=== PATIENT | female | born 1965 | race Two or more races ===

== ENCOUNTER 2021-11-04 14:43 | Emergency (ER) | payer MEDICAID ==
[~2021-11-04] VITALS: Ht 160 cm; Wt 46.7 kg
[2021-11-04 15:25] VITALS: BP 133/76
[2021-11-04] MEDS ORDERED: HYDROCODONE/APAP 5/325MG TABLET PO ONE (17:30)
[2021-11-04] MEDS ORDERED: MORPHINE SULFATE INJ 2 MG/ML DISP.SYRIN IM ONE (17:30)
[2021-11-04] MEDS ORDERED: MORPHINE SULFATE INJ 4 MG/ML DISP.SYRIN ONE (17:45)
[2021-11-04] MEDS ORDERED: CEPHALEXIN MONOHYDRATE 500 MG CAPSULE PO ONE ×2 (19:00→19:03)
[2021-11-04] MEDS ORDERED: TRAM50TA2 PO (19:33)
[2021-11-04] MEDS ORDERED: CEPH500C2 PO (19:33)
== END 2021-11-04 20:58 | disposition home or self-care (01) ==
LOC: ER 15:26
DX: S41.111A Laceration without foreign body of right upper arm, initial encounter (principal); W25.XXXA Contact with sharp glass, initial encounter; Y93.89 Activity, other specified; Y92.89 Other specified places as the place of occurrence of the external cause; Y99.8 Other external cause status
CPT/HCPCS: 12005; 73060; 96372; 99283; A6403; J2270

== ENCOUNTER 2021-11-06 09:59 | Emergency (ER) | payer MEDICAID ==
[~2021-11-06] VITALS: Ht 157.5 cm; Wt 72.6 kg
[~2021-11-06 09:59] MED LIST: CEPH500C2 PO; TRAM50TA2 PO
--- NOTE | 2021-11-06 11:20 | NUR ---
LEFT UPPER ARM WOUND CARE DONE
[2021-11-06 11:21] VITALS: BP 133/90
--- NOTE | 2021-11-06 11:24 | NUR ---
Patient discharged to home in stable condition. Written and verbal after care instructions given. Patient verbalizes understanding of instruction.
== END 2021-11-06 11:24 | disposition home or self-care (01) ==
LOC: ER 10:03
DX: S41.111D Laceration without foreign body of right upper arm, subsequent encounter (principal); F32.9 Major depressive disorder, single episode, unspecified; Z79.899 Other long term (current) drug therapy; W25.XXXD Contact with sharp glass, subsequent encounter